=== PATIENT | male | born 1960 | race African-American/Black ===

== ENCOUNTER 2019-07-02 10:17 | Inpatient (IN) | payer OTHER ==
[2019-07-02 11:28] LABS: ALT (SGPT) 34 U/L (8-55); AST (SGOT) 109 U/L (5-34); Albumin 2.5 g/dL (3.5-5.0); Alkaline Phosphatase 224 U/L (40-110); Anion Gap 12 mmol/L (10-20); BUN (Urea Nitrogen) 17 mg/dL (8.4-25.7); Bilirubin, Total 13.6 mg/dL (0.2-1.2); Calc. Creatinine Clearance 0 mL/min (70-130); Calcium 7.5 mg/dL (7.8-10.44); Carbon Dioxide 18 mmol/L (22-29); Chloride 108 mmol/L (98-107); Estimated GFR-MDRD Greater than 90; Globulin 3.6 g/dL (2.4-3.5); Glucose 128 mg/dL (70-105); Lipase 371 U/L (8-78); Potassium 4.6 mmol/L (3.5-5.1); Protein, Total 6.1 g/dL (6.0-8.3); Sodium 133 mmol/L (136-145)
[2019-07-02 11:53] LABS: #Eosinphils 0.2 thou/uL (0.0-0.7); #Lymphocytes 2.9 thou/uL (1.20-3.40); #Monocytes 1.5 thou/uL (0.11-0.59); #Neutrophils 5.8 thou/uL (1.40-6.50); %Basophils 0.3 % (0.0-1.0); %Eosinophils 1.6 % (0.0-10.0); %Lymphocytes 27.9 % (21.0-51.0); %Monocytes 14.2 % (0.0-10.0); Hemoglobin 9.8 g/dL (14.0-18.0); MDiff Complete? YES; Macrocytosis SLIGHT = 6-15 cells (100X) (0-5/hpf); Mean Corpuscular HGB CONC 31.8 g/dL (32.0-36.0); Mean Corpuscular Hemoglobin 35.2 pg (27.0-31.0); Mean Platelet Volume 9.5 fL (7.4-10.4); Platelet Count 75 thou/uL (130-400); Platelet Morphology Comment Appears Decreased; RBC Distribution Width 19.4 % (11.5-14.5); Red Blood Cell (RBC) Count 2.77 mill/uL (4.70-6.10); White Blood Cell (WBC) Count 10.3 thou/uL (4.8-10.8)
[2019-07-02 12:22] LABS: INR-International Normal Ratio 3.2; PTT 50.8 SEC (22.9-36.1); Prothrombin Time 32.8 sec (12.0-14.7)
[2019-07-02 12:57] LABS: Bacteria/HPF None Seen HPF (None Seen); Bilirubin 2+ (Negative); Blood, Urine Negative (Negative); Clarity Clear (Clear); Glucose, Urine (Dipstick) Normal (Negative); Leukocyte 25 Leu/uL (Negative); Nitrite Negative (Negative); Protein, Urine (Dipstick) 20 mg/dL (Neg-Trace); RBC/HPF 0-3 HPF (0-3); Squamous Epithelial 0-3 HPF (0-3); Urobilinogen Normal mg/dL (Less than 2)
[2019-07-02] MEDS ORDERED: Vancomycin HCl 25 MG/ML Oral PO SCH (15:00)
--- NOTE | 2019-07-02 18:12 | PDOC.FPRHP ---
- History of Present Illness Chief Complaint: bilateral flank pain History of Present Illness: Patient is a 59M with PMHx of cirrhosis with portal HTN, treated Hep C, GERD, HLD, hemorrhoids, esophageal varices, depression, and recent hospitalization for sepsis 2/2 strep bacteremia and C diff presents with bilateral flank pain. Patient reports he woke up with bilateral flank pain that has since improved. He denies dysuria, increased urinary frequency. He endorses urinary hesitancy and some dark-colored urine. He denies diarrhea, denies bloody stools, denies n/ v or abdominal pain. He states that this morning he woke up and felt that his arms, legs, and foreskin are swollen. He reports that he had Hep C, but it had been treated. He denies hx of IV drug use, denies alcohol use. He had a recent admission at [facility] where he was treated for strep bacteremia and c diff. He was sent home with po vanc to continue his tx of c diff. The ED called the GI at [facility], Dr. Liang, and he recommended the patient be admitted for workup for his increased hyperbilirubinemia. PCP-CC; jaziel ED Course: 125mg firvanq po - Allergies/Adverse Reactions Allergies Allergy/AdvReac Type Severity Reaction Status Date / Time No Known Allergies Allergy Unverified 07/02/19 20:43 - Home Medications Medication Instructions Recorded Confirmed Type Calcium Carb/Vitamin D3/Vit K1 1 tablet PO DAILY 07/03/19 07/03/19 History [Calcium + D Soft Chewable Tablet] Citalopram [CeleXA] 20 mg PO DAILY 07/03/19 07/03/19 History Furosemide 20 mg PO BID 07/03/19 07/03/19 History Hydrocortisone Acetate [Anusol-HC] 25 mg GA BID 07/03/19 07/03/19 History Omeprazole 20 mg PO DAILY 07/03/19 07/03/19 History Propranolol [Inderal] 20 mg PO BID 07/03/19 07/03/19 History Spironolactone [Aldactone] 25 mg PO BID 07/03/19 07/03/19 History Vancomycin HCl [Firvanq] 125 mg PO Q6H 07/03/19 07/03/19 History diphenhydrAMINE HCl [Allergy 25 mg PO BID 07/03/19 07/03/19 History Relief] traZODone HCl [Trazodone HCl] 100 mg PO HS 07/03/19 07/03/19 History - History PMHx: cirrhosis with portal HTN, treated Hep C, GERD, HLD, hemorrhoids, esophageal varices, depression, and recent hospitalization for sepsis 2/2 strep bacteremia and C diff PSHx: cholecystectomy FHx: sister and mother had DM and were on HD Social: denies smoking, alcohol, drug use; prior marijuana use when he was younger, no IV drug use - Review of Systems General: denies: fever/chills, weight/appetite/sleep changes Eyes: denies: eye pain, vision changes ENT: denies: nasal congestion, rhinorrhea Respiratory: denies: cough, shortness of breath Cardiovascular: reports: edema (edema of legs, arms, foreskin). denies: chest pain Gastrointestinal: denies: nausea, vomiting, diarrhea, abdominal pain, GI bleeding Genitourinary: denies: incontinence, dysuria Skin: denies: rashes, lesions Musculoskeletal: reports: swelling. denies: pain, tenderness, stiffness Neurological: denies: syncope, seizure Psychological: reports: depression. denies: anxiety - Vital signs BP: [123/82] HR: [82] RR: [19] Tmax: [98.6F] Pox: [93]% on [RA] Wt: [120.7kg] - Physical Exam Constitutional: NAD, awake, alert and oriented HEENT: PERRLA, EOMI, other (bilateral scleral icterus, poor dentition) Neck: supple, FROM Chest: no-tender to palpation, no lesions Heart: RRR, normal S1/S2 Lungs: CTAB, no respiratory distress Abdomen: non-tender, bowel sounds present, other (abdomen distended) Musculoskeletal: normal tone, ROM grossly normal Neurological: no focal deficit, normal sensation Skin: no rash/lesions, good turgor Heme/Lymphatic: no purpura, no petechia Psychiatric: normal mood and affect, intact recent and remote memory FMR H&P: Results - Labs Result Diagrams: 07/02/19 10:53 07/02/19 10:53 Lab results: WBC 10.3 thou/uL (4.8-10.8) 07/02/19 10:53 Hgb 9.8 g/dL (14.0-18.0) L 07/02/19 10:53 Hct 30.7 % (42.0-52.0) L 07/02/19 10:53 MCV 111.0 fL (78.0-98.0) H 07/02/19 10:53 Plt Count 75 thou/uL (130-400) L 07/02/19 10:53 Neutrophils % 56.0 % (42.0-75.0) 07/02/19 10:53 Sodium 133 mmol/L (136-145) L 07/02/19 10:53 Potassium 4.6 mmol/L (3.5-5.1) 07/02/19 10:53 Chloride 108 mmol/L (98-107) H 07/02/19 10:53 Carbon Dioxide 18 mmol/L (22-29) L 07/02/19 10:53 BUN 17 mg/dL (8.4-25.7) 07/02/19 10:53 Creatinine 0.73 mg/dL (0.7-1.3) 07/02/19 10:53 Glucose 128 mg/dL (70-105) H 07/02/19 10:53 Lactic Acid 1.4 mmol/L (0.5-2.2) 07/02/19 10:53 Calcium 7.5 mg/dL (7.8-10.44) L 07/02/19 10:53 Total Bilirubin 13.6 mg/dL (0.2-1.2) H 07/02/19 10:53 AST 109 U/L (5-34) H 07/02/19 10:53 ALT 34 U/L (8-55) 07/02/19 10:53 Alkaline Phosphatase 224 U/L (40-110) H 07/02/19 10:53 Ammonia 41 umol/L (18-72) 07/02/19 13:17 Serum Total Protein 6.1 g/dL (6.0-8.3) 07/02/19 10:53 Albumin 2.5 g/dL (3.5-5.0) L 07/02/19 10:53 Lipase 371 U/L (8-78) H 07/02/19 10:53 Urine Ketones Trace mg/dL (Negative) A 07/02/19 12:38 Urine Blood Negative (Negative) 07/02/19 12:38 Urine Nitrite Negative (Negative) 07/02/19 12:38 Ur Leukocyte Esterase 25 Astrid/uL (Negative) 07/02/19 12:38 Urine RBC 0-3 HPF (0-3) 07/02/19 12:38 Urine WBC 4-6 HPF (0-3) A 07/02/19 12:38 Ur Squamous Epith Cells 0-3 HPF (0-3) 07/02/19 12:38 Urine Bacteria None Seen HPF (None Seen) 07/02/19 12:38 - Radiology Interpretation CT scan - abdomen Status: report reviewed by me (Hepatic cirrhosis with abnormal attenuation within hepatic segment eight which is a linear. Non-emergent follow-up dedicated liver protocol MRI recommended. Differential includes malignant process versus high-grade hypoenhancing fibrosis. Spleen is not significantly enlarged. No hydronephrosis. Moderate third spacing of fluid. Small hepatic and esophageal varices. The portal vein is patent. Mild congestive changes of the ascending colon, trace free fulid in the pelvis. No dilated loops of large or small bowel. The aortic contour is non-aneurysmal. No acute osseous abnormality. Advanced degenerative space disease L3/L4 of large superior endplate Schmorl's node of L4. Disc osteophyte copmlex at L4/L5) FMR H&P: A/P - Problem List (1) Hyperbilirubinemia Current Visit: Yes Status: Acute Code(s): E80.6 - OTHER DISORDERS OF BILIRUBIN METABOLISM (2) Cirrhosis Current Visit: Yes Status: Acute Code(s): K74.60 - UNSPECIFIED CIRRHOSIS OF LIVER (3) Portal hypertension Current Visit: Yes Status: Acute Code(s): K76.6 - PORTAL HYPERTENSION (4) Hepatitis C Current Visit: Yes Status: Acute Code(s): B19.20 - UNSPECIFIED VIRAL HEPATITIS C WITHOUT HEPATIC COMA (5) GERD (gastroesophageal reflux disease) Current Visit: Yes Status: Acute Code(s): K21.9 - GASTRO-ESOPHAGEAL REFLUX DISEASE WITHOUT ESOPHAGITIS (6) HLD (hyperlipidemia) Current Visit: Yes Status: Acute Code(s): E78.5 - HYPERLIPIDEMIA, UNSPECIFIED (7) Hemorrhoid Current Visit: Yes Status: Acute Code(s): K64.9 - UNSPECIFIED HEMORRHOIDS (8) Esophageal varices Current Visit: Yes Status: Acute Code(s): I85.00 - ESOPHAGEAL VARICES WITHOUT BLEEDING (9) Depressed Current Visit: Yes Status: Acute Code(s): F32.9 - MAJOR DEPRESSIVE DISORDER , SINGLE EPISODE, UNSPECIFIED (10) Macrocytic anemia Current Visit: Yes Status: Acute Code(s): D53.9 - NUTRITIONAL ANEMIA, UNSPECIFIED - Plan Patient is a 59M with PMHx of cirrhosis with portal HTN, treated Hep C, GERD, HLD, hemorrhoids, esophageal varices, depression, and recent hospitalization for sepsis 2/2 strep bacteremia and C diff presents with bilateral flank pain. #Hyperbilirubinemia in the setting of Cirrhosis from Hep C -bili 13.6, up from 7.3 during his hospitalization at [facility] -patient has known cirrhosis from Hep C, reportedly treated -abdomen CT: Hepatic cirrhosis with abnormal attenuation within hepatic segment eight which is alinear. Differential includes malignant process vs high-grade hypoenhancing fibrosis -Dr. Liang ([phone]), GI from [facility] was consulted and recommended admission to further work-up elevated liver enzymes including further imaging -liver US with doppler ordered -Hep labs ordered -AFP to assess for hepatocellular carcinoma -continue home meds for cirrhosis -MELD score 30 -consider consulting GI in the am #Hx of C Diff -will continue po vanc for full 14-day course #COVID r/o -patient will be a COVID r/o due to [facility] being hospitalized at [facility] -patient asymptomatic at this time -last COVID neg 06/19 #Macrocytic anemia -patient received blood at [facility] after presenting with grossly bloody stool -patient no longer has hematochezia/melena, no symptoms of diarrhea -Hgb stable from prior admission, will continue to monitor -B12/folate pending #GERD -continue home meds #Hemorrhoids -continue home meds #Depression -continue home meds Diet: regular, NPO at midnight DVTppx: SCDs Dispo: medical obs for hyperbilirubinemia workup Code: Full PCP: [facility]-Long-Term FMR H&P: Upper Level - Pertinent history 59 yo M presents from [facility] for sharp bilateral back pain that started this morning, "my kidneys were hurting" which resolved on its own prior to arrival to ED. He has a history of cirrhosis 2/2 hep C, with a recent discharge from [facility] for C dif colitis and lower GI bleeding , and has had about 10 days of oral vancomycin. Pt reports his diarrhea has resolved, and denies GI bleeding. In the ED, he had elevated Tbili to 13.6, which was elevated from 7 during his last hospital stay. Lipase was elevated to 371. GI from [facility] recommended that the patient be admitted for further workup of his hyperbilirubinemia. - Pertinent findings VS: BP 109/65, P 78, R 19, 98.6 T, 98% on RA PE: General: AAM in no acute distress, lying in bed Eyes: Scleral icterus bilat Lungs: BCTA, no wheezing or crackles Cardiac: RRR, no murmurs Abdomen: +fluid wave, soft, non tender Back: no CVA tenderness Extremities: 2+ pitting edema bilat upper and lower extremities, pulses 2+ BUE and BLE - Plan Date/Time: 07/02/19 1810 59 yo M with cirrhosis 2/2 Hep C presents admitted for hyperbilirubinemia Elevated bilirubin -7.3 on recent discharge, 13.7 today. Direct bili 7.6. Likely increased 2/2 to his recent GI bleed due to C dif colitis. -Liver dopplers pending to r/o hepatic thrombosis -Consult GI in AM, appreciate recommendations Cirrhosis 2/2 Hep C, s/p treatment -Hep C quant pending -MELD 30 -AFP pending -Abdomen CT from [facility]: Hepatic cirrhosis with abnormal attenuation within hepatic segment eight which is alinear. Differential includes malignant process vs high-grade hypoenhancing fibrosis. Recommend non-emergent MRI follow/ up. -Appreciate GI recs C dif colitis -Continue to treat with PO vanc for total course 14 days Macrocytic Anemia -Hgb stable, 8 on discharge, 9.8 today -MCV 111 -B12 and folate pending Covid R/O -Due [facility] from [facility], patient to be swabbed for Covid. Asymptomatic. Lower back pain -Resolved -UA neg, urine culture pending Recent Bacteremia Group G strep -s/p treatment, repeat blood cultures pending I, Meseret Plunkett MD, have evaluated this patient and agree with findings/plan as outlined by equine intern resident. Pertinent changes/additions are listed here. Addendum - Attending - Attending Attestation Date/Time: 05/23/20 2300 I personally evaluated the patient and discussed the management with Dr. Sosa/ Dimitrios. I agree with the History, Examination, Assessment and Plan documented above with any addition or exceptions noted below. patient has had a marked changed in his labs since D/C from [facility]. Concern for development of development of acute on chronic hepatic failure. Recent CT scan showed hepatic mass. Tumor markers pending as is Liver US to r/o portal venous thrombosis. Will continue to monitor labs and consult GI tomorrow. COVID r/o since currently incarcerated.
[2019-07-02] MEDS ORDERED: Calcium Carbonate 500 MG ChewTAB PO PRN (19:48)
[2019-07-02 21:36] LABS: HBCM Index 0.05 S/CO (0-0.79); Hep B Core Total Ab Non-Reactive (NonReactive); Hep B Core Total Index 0.13 S/CO (0-0.79); Hepatitis B Core IgM Abs Non-Reactive (NonReactive)
[2019-07-02 21:40] LABS: HBSAB Concentration 24.46 mIU/mL; Hep B Surf AB Reactive (NonReactive)
[2019-07-02] MEDS: Vancomycin HCl 25 MG/ML Oral PO SCH (23:40)
[2019-07-03] MEDS: Vancomycin HCl 25 MG/ML Oral PO SCH ×4 (04:13→21:21)
--- NOTE | 2019-07-03 06:54 | PDOC.FM ---
- Subjective Subjective: NAEO. Patient reports resolution of flank pain this AM. No N/V/D or blood in stool. Also reported improvement in foreskin edema. - Objective MAR Reviewed: Yes Vital Signs & Weight: Vital Signs (12 hours) Temp Pulse Resp BP Pulse Ox 07/03/19 04:18 98.8 F 84 16 130/75 97 07/02/19 23:44 76 12 126/57 L 97 07/02/19 20:31 98.8 F 70 16 122/69 97 Weight Weight 120.565 kg I&O: 07/01/19 07/02/19 07/03/19 06:59 06:59 06:59 Intake Total 110 Balance 110 Result Diagrams: 07/03/19 06:47 07/03/19 06:46 Phys Exam - Physical Examination Constitutional: NAD HEENT: moist MMs Neck: supple, full ROM Respiratory: no wheezing, no rales, no rhonchi, clear to auscultation bilateral Cardiovascular: RRR, no significant murmur Gastrointestinal: non-tender mild distention noted Musculoskeletal: edema present (2+ pitting edema on lateral aspects of both legs ) Neurological: non-focal, moves all 4 limbs Psychiatric: normal affect, A&O x 3 Skin: no rash Dx/Plan (1) Cirrhosis Code(s): K74.60 - UNSPECIFIED CIRRHOSIS OF LIVER Status: Chronic (2) Depressed Code(s): F32.9 - MAJOR DEPRESSIVE DISORDER, SINGLE EPISODE, UNSPECIFIED Status : Chronic (3) Esophageal varices Code(s): I85.00 - ESOPHAGEAL VARICES WITHOUT BLEEDING Status: Chronic (4) GERD (gastroesophageal reflux disease) Code(s): K21.9 - GASTRO-ESOPHAGEAL REFLUX DISEASE WITHOUT ESOPHAGITIS Status: Chronic (5) HLD (hyperlipidemia) Code(s): E78.5 - HYPERLIPIDEMIA, UNSPECIFIED Status: Chronic (6) Hemorrhoid Code(s): K64.9 - UNSPECIFIED HEMORRHOIDS Status: Chronic (7) Hepatitis C Code(s): B19.20 - UNSPECIFIED VIRAL HEPATITIS C WITHOUT HEPATIC COMA Status: Chronic (8) Hyperbilirubinemia Code(s): E80.6 - OTHER DISORDERS OF BILIRUBIN METABOLISM Status: Acute (9) Macrocytic anemia Code(s): D53.9 - NUTRITIONAL ANEMIA, UNSPECIFIED Status: Chronic (10) Portal hypertension Code(s): K76.6 - PORTAL HYPERTENSION Status: Chronic - Plan Plan: Patient is a 59M with PMHx of cirrhosis with portal HTN, treated Hep C, GERD, HLD, hemorrhoids, esophageal varices, depression, and recent hospitalization for sepsis 2/2 strep bacteremia and C diff presents with bilateral flank pain. #Hyperbilirubinemia in the setting of Cirrhosis 2/2 Hep C -bili 13.6, up from 7.3 during his hospitalization at [facility] -patient has known cirrhosis from Hep C (MELD score 30), reportedly treated. Hep C viral load pending. Hep B serologies indication of immunization. -abdomen CT from [facility] notable for Hepatic cirrhosis with abnormal attenuation within hepatic segment eight which is linear. Follow-up liver MRI imaging recommended by radiologist who read scan. Dr. Liang ([phone]), GI from [facility] was consulted and recommended admission to further work-up elevated liver enzymes including further imaging. - DDX includes malignant process vs high-grade hypoenhancing fibrosis. AFP WNLs & CEA pending. -liver US with doppler ordered but patient COVID-PUI so will likely not get until this has resulted. Will touch base with GI today for further recs in the meantime. -continue home meds for cirrhosis #Hx of C Diff -will continue po vanc for full 14-day course #COVID r/o -patient is a COVID r/o due to returning to senior care after being hospitalized at [facility] -patient asymptomatic at this time -last COVID neg 06/19 #Macrocytic anemia -patient received blood at [facility] after presenting with grossly bloody stool -patient no longer has hematochezia/melena, no symptoms of diarrhea -Hgb stable overnight -B12/folate WNLs #GERD -continue home meds #Hemorrhoids -continue home meds #Depression -continue home meds Diet: NPO pending GI recs. DVT ppx: SCDs GI PPX: protonix Dispo: Continue monitoring on medical obs for hyperbilirubinemia workup. Code: Full PCP: MEHNAZ-Hakeem Addendum - Attending - Attending Attestation Date/Time: 07/03/19 1049 Patient is a 59M with PMHx from senior care with history cirrhosis with portal HTN, treated Hep C, GERD, HLD, hemorrhoids, esophageal varices, depression, and recent hospitalization for sepsis 2/2 strep bacteremia and C diff admitted for evaluation of increased bilirubin. His GI doctor at [facility] wanted him admitted for evalution of hyperbilirubin and said [facility] was full. Patient had COVID swab because he is from senior care, asymptomatic. Outpatient MRI was rec'd from his CT report at the [facility]. Dr. Kerr will see patient, appreciate recs.
[2019-07-03 07:15] LABS: ALT (SGPT) 35 U/L (8-55); AST (SGOT) 109 U/L (5-34); Albumin 2.2 g/dL (3.5-5.0); Alkaline Phosphatase 202 U/L (40-110); Anion Gap 9 mmol/L (10-20); BUN (Urea Nitrogen) 17 mg/dL (8.4-25.7); Bilirubin, Total 14.5 mg/dL (0.2-1.2); Calc. Creatinine Clearance 189 mL/min (70-130); Calcium 7.4 mg/dL (7.8-10.44); Carbon Dioxide 21 mmol/L (22-29); Chloride 110 mmol/L (98-107); Estimated GFR-MDRD Greater than 90; Globulin 3.5 g/dL (2.4-3.5); Glucose 71 mg/dL (70-105); Potassium 4.9 mmol/L (3.5-5.1); Protein, Total 5.7 g/dL (6.0-8.3); Sodium 135 mmol/L (136-145)
[2019-07-03 07:20] LABS: INR-International Normal Ratio 3.5; Prothrombin Time 34.6 sec (12.0-14.7)
[2019-07-03 08:13] LABS: Band 1 % (5-11); Hemoglobin 9.3 g/dL (14.0-18.0); Lymphocytes 27 % (21-51); MDiff Complete? YES; Mean Corpuscular HGB CONC 30.5 g/dL (32.0-36.0); Mean Corpuscular Hemoglobin 34.5 pg (27.0-31.0); Mean Platelet Volume 9.3 fL (7.4-10.4); Metamyelocyte 1 % (0-0); Monocytes 7 % (0-10); Neutrophil 64 % (42-75); Platelet Count 73 thou/uL (130-400); Platelet Morphology Comment Appears Decreased; RBC Distribution Width 19.8 % (11.5-14.5); Red Blood Cell (RBC) Count 2.69 mill/uL (4.70-6.10); White Blood Cell (WBC) Count 10.5 thou/uL (4.8-10.8)
[2019-07-03] MEDS: Calcium Carbonate 600 MG + Vit D TAB PO SCH (08:52)
[2019-07-03] MEDS: Spironolactone 25 MG TAB PO SCH ×2 (08:52→20:01)
[2019-07-03] MEDS: Furosemide 20 MG TAB PO SCH ×2 (08:52→20:01)
[2019-07-03] MEDS: Hydrocortisone Acetate 25 MG Suppository PR SCH ×2 (08:54→21:22)
[2019-07-03] MEDS: Citalopram 20 MG TAB PO SCH (08:54)
[2019-07-03] MEDS: Propranolol 10 MG TAB PO SCH ×2 (09:50→20:00)
[2019-07-03 17:09] LABS: SARS-CoV-2 MS2 Positive; SARS-CoV-2 N Gene Negative; SARS-CoV-2 S Gene Negative; SARS-CoV-2 orf1ab Negative
[2019-07-03] MEDS: traZODone HCl 50 MG TAB PO SCH (20:01)
--- NOTE | 2019-07-04 00:58 | CON ---
DATE OF CONSULTATION: 07/03/2019 REQUESTING PHYSICIAN: Dr. Hutchinson. REASON FOR CONSULTATION: Cirrhosis and jaundice. HISTORY OF PRESENT ILLNESS: Mr. Jonel Recio is a 59-year-old gentleman, [facility], admitted to the hospital yesterday for transient flank pain and hyperbilirubinemia. Notably, he has a history of cirrhosis, which is thought to be secondary to hepatitis C. Evidently, this has been successfully treated in the past with sustained virologic response. The patient also has a history of depression and cholecystectomy. He was recently hospitalized from 06/19 to 06/29, earlier this month at the [facility]. He had presented there with fevers and bloody stool. He was found to have streptococcal bacteremia as well as C difficile colitis. COVID testing was negative. The patient was treated with antibiotics by IV as well as oral vancomycin. He is finishing up the oral vancomycin, and his hematochezia and diarrhea have all completely resolved. Notably, labs while he was there included hemoglobin of 8.0, platelets of 67,000. Total bilirubin of 7.6, AST 102, ALT 43. INR of 2.5. The patient had a CT scan there, which demonstrated cirrhotic liver with an abnormal linear attenuation in segment 8, felt to represent either malignant process or high-grade fibrosis, and it was recommended that nonemergent MRI followup be obtained. This was deferred, as was any endoscopy, to the present health system following discharge. The patient states he did well for a couple of days after discharge, but yesterday he had several hours of bilateral flank pain, which was intermittently quite severe. This had essentially resolved by the time of his admission here last night, but labs had demonstrated some worsening in bilirubin up to 14.5 and worsening of INR up to 3.5. [facility] was full, but their physicians recommended he be admitted for further workup of this. At this time, the patient is currently again asymptomatic. There is no blood in the stool. He thinks there was a bit of trace blood in the urine, but urinalysis does not really bear this out. He is no longer having any abdominal pain or any flank pain. There is no nausea or vomiting. He is jaundiced, but this is nothing new for him. REVIEW OF SYSTEMS: Full review of systems including constitutional, head, eyes, ears, nose, throat, GI, , cardiovascular, respiratory, musculoskeletal, neurologic systems is negative except as noted in the HPI. PAST MEDICAL HISTORY: 1. Hepatitis C, evidently successfully treated with sustained virologic response. 2. Cirrhosis, secondary to hepatitis C. 3. Hyperlipidemia. 4. Hypertension. 5. Osteoarthritis. 6. Cholecystectomy. 7. Depression. 8. C difficile, finishing up treatment for this with symptom resolution. ALLERGIES: NO KNOWN DRUG ALLERGIES. MEDICATIONS: 1. Calcium/vitamin D. 2. Celexa. 3. Furosemide 20 mg b.i.d. 4. Anusol. 5. Omeprazole 20 mg daily. 6. Propranolol 20 mg b.i.d. 7. Spironolactone 25 mg b.i.d. 8. Vancomycin 125 mg q.6 hours. 9. Diphenhydramine. 10. Trazodone. FAMILY HISTORY: His mother and sister had end-stage renal disease and diabetes. SOCIAL HISTORY: The patient is a [employer] inmate. No current tobacco, alcohol, or drug use. PHYSICAL EXAMINATION: VITAL SIGNS: Temperature 97.9, pulse 78, blood pressure 110/56, 98% oxygen saturation on room air. GENERAL: A 59-year-old man, walking about the room very comfortably, in no distress, in good spirits. SKIN: He is jaundiced. No rashes were palpable. EYES: He has scleral icterus. Extraocular movements intact. ENT: Mucous membranes moist. No oral lesions. LYMPH: No submandibular or supraclavicular lymphadenopathy. THYROID: Nontender to palpation. HEART: Regular rate and rhythm. LUNGS: Clear to auscultation bilaterally. ABDOMEN: Bowel sounds are present. Soft, nontender to palpation throughout. EXTREMITIES: No peripheral edema. VESSELS: Radial pulses, 2+ bilaterally. NEUROLOGIC: Cranial nerves 2 through 12 intact bilaterally. No focal deficits. LABORATORY STUDIES: WBC 10.5, hemoglobin 9.3, which is stable from before, platelets 73. INR 3.5, which is increased from recent hospitalization. Sodium 135, potassium 4.9, BUN 17, creatinine 0.71, total bilirubin 14.5, direct bilirubin 7.6, alkaline phosphatase 202, AST 109, ALT 35, albumin 2.2. Notably, LFTs are all stable from recent admission except for total bilirubin, lipase 371. Lactic acid only 1.4. AFP only 5.4. Ammonia only 41. Vitamin B12 greater than 2000. Folic acid 13.2. CEA pending. CA-19-9 pending. Urinalysis shows only 4 to 6 wbc's. Urine culture is negative at 24 hours. ASSESSMENT AND PLAN: 1. Cirrhosis, decompensated. 2. Hyperbilirubinemia. The patient has had interval elevation in his total bilirubin as well as his INR from his recent admission at the [facility]. Notably, direct bilirubin is only 7.6 with total bilirubin 14.5, so I wonder if he might have some component of Gilbert syndrome in addition to his decompensated liver disease. Even so, the INR is also more elevated, now to 3.5 as opposed to 2.5 in recent admission. Given his recent abdominal imaging and absence of current abdominal pain symptoms, I doubt that this represents any biliary obstructive process. It is likely that the elevated bilirubin simply will reflex his recent septicemia and Clostridium difficile infection, the total bilirubin can often elevate the situations and persist, notably the transaminases are stable. It would be worthwhile to trend the LFTs and INR daily for a day or two to assure they are not continuing to spike, but I do not think that any further laboratory investigations are necessary at this point. 3. Abnormal CT scan of the liver, suggesting abnormal attenuation in hepatic segment 8. I reviewed that CT report. Nonemergent MRI followup of this lesion was suggested. I note that AFP is normal. CA-19-9 and CEA are pending. Hopefully, this just represents linear scarring, but given the significant rise in bilirubin, it would be worthwhile to just go ahead and obtain that MRI for further characterization now. I have canceled the abdominal ultrasound with Dopplers and ordered the MRI, which should give us that information and more. 4. History of hepatitis C. This was evidently successfully treated with sustained virologic response. Hepatitis C RNA has been ordered and is pending. Anticipate if labs are stable the next day or two and the MRI does not show any new concerning findings, he will be able to be discharged back to his unit, to follow up longer-term for his cirrhosis with [facility] physicians. Job ID: [id number]
[2019-07-04] MEDS: Vancomycin HCl 25 MG/ML Oral PO SCH ×4 (04:09→22:43)
[2019-07-04 05:47] LABS: INR-International Normal Ratio 3.8
[2019-07-04 06:11] LABS: ALT (SGPT) 27 U/L (8-55); AST (SGOT) 112 U/L (5-34); Albumin 2.2 g/dL (3.5-5.0); Alkaline Phosphatase 159 U/L (40-110); BUN (Urea Nitrogen) 19 mg/dL (8.4-25.7); Bilirubin, Total 16.9 mg/dL (0.2-1.2); Calc. Creatinine Clearance 184 mL/min (70-130); Calcium 7.6 mg/dL (7.8-10.44); Carbon Dioxide 17 mmol/L (22-29); Chloride 108 mmol/L (98-107); Estimated GFR-MDRD Greater than 90; Globulin 3.4 g/dL (2.4-3.5); Glucose 102 mg/dL (70-105); Potassium 5.1 mmol/L (3.5-5.1); Protein, Total 5.6 g/dL (6.0-8.3); Sodium 132 mmol/L (136-145)
[2019-07-04 06:17] LABS: Anion Gap 12 mmol/L (10-20)
--- NOTE | 2019-07-04 06:52 | PDOC.FM ---
- Subjective Subjective: Mr. Recio has no complaints this morning. Reports foreskin edema continues to improve. Says urine is not as dark as prior. - Objective Vital Signs & Weight: Vital Signs (12 hours) Temp Pulse Resp BP BP Pulse Ox 07/04/19 04:00 97.7 F 67 18 111/72 99 07/03/19 23:57 97.8 F 68 18 108/70 98 07/03/19 22:39 97.5 F L 62 18 114/72 99 07/03/19 19:20 97.7 F 70 16 114/66 98 Weight Weight 120.882 kg I&O: 07/02/19 07/03/19 07/04/19 06:59 06:59 06:59 Intake Total 110 100 Balance 110 100 Result Diagrams: 07/03/19 06:47 07/04/19 05:21 Phys Exam - Physical Examination Constitutional: NAD Respiratory: clear to auscultation bilateral (anteriorly) Cardiovascular: RRR, no significant murmur Gastrointestinal: non-tender (slightly distended) Musculoskeletal: edema present (1+pitting edema BLE) Deviation from normal: foreskin slightly edematous, no erythema, can be retracted Dx/Plan - Plan Plan: 59M with PMHx of cirrhosis with portal HTN, treated Hep C, GERD, HLD, hemorrhoids, esophageal varices, depression, and recent hospitalization for sepsis 2/2 strep bacteremia and C diff presents with bilateral flank pain. #Hyperbilirubinemia in the setting of Cirrhosis 2/2 Hep C -bili trending up, 16.9 -patient has known cirrhosis from Hep C (MELD score 30), reportedly treated and alcohol abuse. Hep C viral load pending. Hep B serologies indicate immunization. -abdomen CT from [facility] notable for Hepatic cirrhosis with abnormal attenuation within hepatic segment eight which is linear. Follow-up liver MRI imaging recommended by radiologist who read scan. - Dr. Liang ([phone]), GI from [facility] - GI consulted, MRI and other labs pending #Hx of C Diff -will continue po vanc for full 14-day course #COVID negative #Macrocytic anemia -patient received blood at [facility] after presenting with grossly bloody stool -patient no longer has hematochezia/melena, no symptoms of diarrhea -Hgb stable, B12, folate WNL. # Blood cx +coag neg staph - likely contaminate #GERD -continue home meds #Hemorrhoids -continue home meds #Depression -continue home meds Diet: NPO pending GI recs. DVT ppx: SCDs GI PPX: protonix Dispo: Continue hyperbilirubinemia workup per GI Code: Full PCP: Jelena Addendum - Attending - Attending Attestation Date/Time: 07/04/19 8417 I personally evaluated the patient and discussed the management with Dr. Mcginnis. I agree with the History, Examination, Assessment and Plan documented above with any addition or exceptions noted below. Patient stable. MELD score continues to trend upward in his state of decompensated cirrhosis. 90 day mortality now estimated at 65% due to MELD 34. GI on board. MRI of liver pending and further mgmt pending GI recs. Labs overall stable but mild worsening of liver function.
[2019-07-04] MEDS: Propranolol 10 MG TAB PO SCH ×2 (08:43→22:21)
[2019-07-04] MEDS: Calcium Carbonate 600 MG + Vit D TAB PO SCH (08:43)
[2019-07-04] MEDS: Furosemide 20 MG TAB PO SCH ×2 (08:44→22:20)
[2019-07-04] MEDS: Hydrocortisone Acetate 25 MG Suppository PR SCH ×2 (08:44→22:21)
[2019-07-04] MEDS: Spironolactone 25 MG TAB PO SCH ×2 (08:44→22:19)
[2019-07-04] MEDS: Citalopram 20 MG TAB PO SCH (08:44)
--- NOTE | 2019-07-04 15:42 | PRG ---
DATE OF SERVICE: 07/04/2019 SUBJECTIVE: Mr. eRcio is feeling okay. No new complaints. He is tolerating his diet. Bowel movements are normal. He has not yet undergone MRI. INR and total bilirubin are slightly up to 3.8 and 16.9 respectively. OBJECTIVE: VITAL SIGNS: Temperature 98.1, pulse 72, blood pressure 103/66, and 98% oxygen saturation on room air. GENERAL: A 59-year-old man, lying in bed comfortably, in no distress. He is jaundiced. HEART: Regular rate and rhythm. LUNGS: Clear to auscultation bilaterally. ABDOMEN: Bowel sounds present. Soft and nontender to palpation throughout. EXTREMITIES: No peripheral edema. LABORATORY STUDIES: WBC is 10.5, hemoglobin 9.3, and platelets 73. INR up to 3.8. Sodium 132, potassium 5.1, BUN 19, and creatinine 0.73. Total bilirubin up to 16.9, but otherwise stable. Alkaline phosphatase 159, AST 112, and ALT 27. COVID PCR is negative. Hepatitis B surface antibody is reactive, signifying immunity. Hepatitis C RNA is pending. CA-19-9 level is pending. MRI of the abdomen with contrast is also pending. ASSESSMENT AND PLAN: 1. Cirrhosis, decompensated in the context of recent Strep bacteremia and Clostridium difficile colitis. 2. Hyperbilirubinemia. The patient has had interval elevation in his total bilirubin as well as his INR since recent admission at the [facility]. Even so, he remains clinically stable. We are awaiting abdominal MRI to better rule out any biliary obstructive process and also further characterize this area of abnormal attenuation in hepatic segment 8. CA-19-9 level is still pending. Note that AFP is normal. 3. History of hepatitis C. This was evidently successfully treated with sustained virologic response. Hepatitis C RNA has been ordered and is pending. 4. Continue to trend INR and CMP daily. If the patient was to develop any signs of encephalopathy, recheck ammonia and start lactulose. Job ID: [id number]
[2019-07-04] MEDS: traZODone HCl 50 MG TAB PO SCH (22:19)
[2019-07-05] MEDS: Vancomycin HCl 25 MG/ML Oral PO SCH ×2 (03:45→11:13)
[2019-07-05 05:58] LABS: INR-International Normal Ratio 3.8
--- NOTE | 2019-07-05 07:08 | PDOC.FM ---
- Subjective Subjective: Mr. Recio is feeling well this morning and has no complaints. Awaiting MRI. - Objective Vital Signs & Weight: Vital Signs (12 hours) Temp Pulse Resp BP BP Pulse Ox 07/05/19 04:38 97.7 F 66 20 105/67 97 07/05/19 00:00 98.4 F 71 20 116/77 96 07/04/19 20:00 98.1 F 73 20 99/66 99 07/04/19 19:59 98.1 F 73 20 99/66 99 Weight Weight 120.882 kg I&O: 07/04/19 07/05/19 07/06/19 06:59 06:59 06:59 Intake Total 100 700 Output Total 600 Balance 100 100 Result Diagrams: 07/03/19 06:47 07/05/19 07:50 Phys Exam - Physical Examination Constitutional: NAD jaundiced sclera Respiratory: clear to auscultation bilateral Cardiovascular: RRR, no significant murmur Gastrointestinal: soft (slightly distended), non-tender anasarca Neurological: non-focal Psychiatric: normal affect Skin: normal turgor Dx/Plan - Plan Plan: 59M with PMHx of cirrhosis with portal HTN, treated Hep C, GERD, HLD, hemorrhoids, esophageal varices, depression, and recent hospitalization for sepsis 2/2 strep bacteremia and C diff presents with bilateral flank pain. #Hyperbilirubinemia in the setting of decompensated cirrhosis -bili trending up -patient has known cirrhosis from Hep C (MELD score 30s), reportedly treated and alcohol abuse. Hep C viral load pending. Hep B serologies indicate immunization. AFP negative. -abdomen CT from [facility] notable for Hepatic cirrhosis with abnormal attenuation within hepatic segment eight which is linear. Follow-up liver MRI imaging recommended by radiologist who read scan. - Dr. Liang ([phone]), GI from [facility] - GI consulted, MRI and other labs pending #Hx of C Diff -will continue po vanc for full 14-day course, today likely last day of therapy but will verify before discontinuing. #COVID negative #Macrocytic anemia -patient received blood at [facility] after presenting with grossly bloody stool -Hgb stable, B12, folate WNL. # Blood cx +coag neg staph - likely contaminate #GERD -continue home meds #Hemorrhoids -continue home meds #Depression -continue home meds DVT ppx: SCDs GI PPX: protonix Dispo: Continue hyperbilirubinemia workup per GI, pending MRI to be done today, otherwise is medically stable Code: Full PCP: Jelena Addendum - Attending - Attending Attestation Date/Time: 07/05/19 1221 I personally evaluated the patient and discussed the management with Dr. Mcginnis. I agree with the History, Examination, Assessment and Plan documented above with any addition or exceptions noted below. Liver function stable. Awaiting MRI and further GI recs but hopefully nearing stable for discharge back to facility.
[2019-07-05 07:31] VITALS: BMI 38.9
[2019-07-05 08:18] LABS: ALT (SGPT) 47 U/L (8-55); AST (SGOT) 138 U/L (5-34); Albumin 2.3 g/dL (3.5-5.0); Alkaline Phosphatase 218 U/L (40-110); Anion Gap 7 mmol/L (10-20); BUN (Urea Nitrogen) 18 mg/dL (8.4-25.7); Bilirubin, Total 17.6 mg/dL (0.2-1.2); Calc. Creatinine Clearance 151 mL/min (70-130); Calcium 7.5 mg/dL (7.8-10.44); Carbon Dioxide 25 mmol/L (22-29); Chloride 105 mmol/L (98-107); Estimated GFR-MDRD Greater than 90; Globulin 3.6 g/dL (2.4-3.5); Glucose 104 mg/dL (70-105); Potassium 4.1 mmol/L (3.5-5.1); Protein, Total 5.9 g/dL (6.0-8.3); Sodium 133 mmol/L (136-145)
[2019-07-05] MEDS: Propranolol 10 MG TAB PO SCH ×2 (08:36→21:59)
[2019-07-05] MEDS: Furosemide 20 MG TAB PO SCH (08:36)
[2019-07-05] MEDS: Citalopram 20 MG TAB PO SCH (08:36)
[2019-07-05] MEDS: Calcium Carbonate 600 MG + Vit D TAB PO SCH (08:36)
[2019-07-05] MEDS: Spironolactone 25 MG TAB PO SCH (08:36)
[2019-07-05] MEDS: Hydrocortisone Acetate 25 MG Suppository PR SCH ×2 (08:37→21:59)
--- NOTE | 2019-07-05 13:49 | MRI ---
MRI OF THE ABDOMEN WITHOUT AND WITH CONTRAST: COMPARISON: CT abdomen/pelvis 06/20/2019. HISTORY: Cirrhosis with abnormality seen in segment 8 of the liver on recent CT. TECHNIQUE: Multiplanar, multisequence MR images were obtained of the abdomen without and with IV contrast. FINDINGS: The liver is nodular in appearance consistent with cirrhosis. The abnormal region seen in segment 8 of the liver on prior CT shows no focal liver mass or significantly abnormal enhancement compared to the rest of the liver and likely represented normal fibrous septations in an area of cirrhosis. No b iliary dilatation is seen. The gallbladder has been removed. There is a small amount of ascites. Diffuse soft tissue anasarca is present. There is a 9 mm cyst i n the right kidney. The adrenal glands, left kidney, spleen, and pancreas are unremarkable. No abdominal adenopathy is seen. No marrow signal abnormality is present. IMPRESSION: 1. Cirrhosis without suspicious liver lesion identified. 2. Ascites. 3. Small right renal cyst. POS: [facility]
--- NOTE | 2019-07-05 15:37 | PRG ---
DATE OF SERVICE: SUBJECTIVE: The patient had his MRI earlier this morning. He feels fine without any localizing pain. He denies any nausea or vomiting. Able to tolerate his diet well. His only complaint is swelling in his legs. PHYSICAL EXAMINATION: VITAL SIGNS: Temperature 97.8, blood pressure 104/68, pulse of 70. GENERAL: He is alert, sitting up in big chair without any distress. HEENT: Shows icteric sclerae. Oropharynx is clear. NECK: Supple. CV: Shows normal S1 and S2. Regular rate and rhythm. CHEST: Shows breath sounds. ABDOMEN: Protuberant but nontender. He has active bowel sounds. There is no tenderness. EXTREMITIES: Shows 3+ pretibial and pedal edema. LABORATORY DATA: WBC is 10.5, hemoglobin 9.3, and platelet count is 73 on . His electrolytes within normal range. Creatinine 0.88, BUN of 18, bilirubin of 7.5, AST of 138, ALT of 47, alkaline phosphatase 218. Abdominal MRI performed showed cirrhotic liver without any focal mass or lesion. There is no biliary dilation. He does have diffuse ascites. ASSESSMENT: 1. Evidence of decompensation cirrhosis from recent C diff and streptococcal infection, hospitalized at [facility]. He has ascites and peripheral edema at this point, but no evidence of hepatic encephalopathy. 2. Elevation of liver profile with hyperbilirubinemia. Bilirubin appears to be stabilized at the present time. He does have clinically significant hepatic dysfunction as evidenced by INR of over 3. 3. Abnormality seen on liver by CT, MRI does not show any focal hepatic lesion. 4. History of recently treated hepatitis C, HCV RNA is still pending. PLAN: 1. We will increase his diuretics to furosemide 40 mg b.i.d. and spironolactone 100 mg b.i.d. as his renal function remained stable and without any significant electrolyte derangements. 2. Continue salt restriction. 3. We will start on vitamin K 5 mg daily. 4. Continue to trend his bilirubin and transaminases. If stable, can be discharged from hospital. Job ID: [id number] [facility]ITAL[facility]
[2019-07-05] MEDS: traZODone HCl 50 MG TAB PO SCH (21:59)
[2019-07-05] MEDS: Spironolactone 100 MG TAB PO SCH (21:59)
--- NOTE | 2019-07-06 06:48 | PDOC.FM ---
- Subjective Subjective: Mr. Recio was pleasant, sitting up eating breakfast this morning. He has no concerns. - Objective Vital Signs & Weight: Vital Signs (12 hours) Temp Pulse Resp BP Pulse Ox 07/06/19 00:16 98 F 71 17 109/69 96 07/05/19 20:00 99 07/05/19 19:30 98.3 F 72 18 114/70 99 Weight Weight 120.202 kg I&O: 07/04/19 07/05/19 07/06/19 06:59 06:59 06:59 Intake Total 100 940 Output Total 600 350 Balance 100 340 -350 Result Diagrams: 07/03/19 06:47 07/06/19 06:43 Phys Exam - Physical Examination Constitutional: NAD Respiratory: no wheezing, clear to auscultation bilateral Cardiovascular: RRR, no significant murmur Gastrointestinal: soft, non-tender (slightly distended) Musculoskeletal: edema present (2+ pitting edema BLE) Neurological: non-focal Psychiatric: normal affect Skin: normal turgor Dx/Plan - Plan Plan: 59M with PMHx of cirrhosis with portal HTN, treated Hep C, GERD, HLD, hemorrhoids, esophageal varices, depression, and recent hospitalization for sepsis 2/2 strep bacteremia and C diff presents with bilateral flank pain. #Hyperbilirubinemia in the setting of decompensated cirrhosis -bili continues to trend up -patient has known cirrhosis from Hep C (MELD score 30s), reportedly treated and alcohol abuse. Hep C viral load pending. Hep B serologies indicate immunization. AFP negative. -abdomen CT from [facility] notable for Hepatic cirrhosis with abnormal attenuation within hepatic segment eight which is linear. Follow-up MRI showed no new concerning finding. - Dr. Liang ([phone]), GI from [facility] - GI consulted, titrating medications #Hyperkalemia, mild - changes being made to diuretic ratio, lasix and spironolactone both increased - continue to monitor #Hx of C Diff -treated, PO vanc discontinued #COVID negative #Macrocytic anemia -patient received blood at [facility] after presenting with grossly bloody stool -Hgb stable, B12, folate WNL. # Blood cx +coag neg staph - likely contaminate #GERD -continue home meds #Hemorrhoids -continue home meds #Depression -continue home meds DVT ppx: SCDs GI PPX: protonix Code: Full PCP: Jelena Dispo: labs continuing to uptrend, meds titrated up, await GI recommendations Addendum - Attending - Attending Attestation Date/Time: 07/06/19 0803 I personally evaluated the patient and discussed the management with Dr. Mcginnis. I agree with the History, Examination, Assessment and Plan documented above with any addition or exceptions noted below. Patient labs overall stable. Hep panel still pending. GI on board, likely stable for discharge and outpatient follow up of his worsening cirrhosis.
[2019-07-06 07:03] LABS: INR-International Normal Ratio 3.5; Prothrombin Time 35.1 sec (12.0-14.7)
[2019-07-06 07:20] LABS: ALT (SGPT) 54 U/L (8-55); AST (SGOT) 149 U/L (5-34); Albumin 2.3 g/dL (3.5-5.0); Alkaline Phosphatase 227 U/L (40-110); Anion Gap 9 mmol/L (10-20); BUN (Urea Nitrogen) 20 mg/dL (8.4-25.7); Bilirubin, Total 19.1 mg/dL (0.2-1.2); Calc. Creatinine Clearance 150 mL/min (70-130); Calcium 7.7 mg/dL (7.8-10.44); Carbon Dioxide 23 mmol/L (22-29); Chloride 104 mmol/L (98-107); Estimated GFR-MDRD Greater than 90; Glucose 113 mg/dL (70-105); Potassium 5.3 mmol/L (3.5-5.1); Protein, Total 6.3 g/dL (6.0-8.3); Sodium 131 mmol/L (136-145)
[2019-07-06] MEDS: Calcium Carbonate 600 MG + Vit D TAB PO SCH (08:14)
[2019-07-06] MEDS: Hydrocortisone Acetate 25 MG Suppository PR SCH ×2 (08:14→20:31)
[2019-07-06] MEDS: Citalopram 20 MG TAB PO SCH (08:14)
[2019-07-06] MEDS: Furosemide 20 MG TAB PO SCH ×2 (08:14→14:50)
[2019-07-06] MEDS: Propranolol 10 MG TAB PO SCH ×2 (08:15→20:30)
[2019-07-06] MEDS: Spironolactone 100 MG TAB PO SCH ×2 (08:15→20:30)
[2019-07-06] MEDS: Phytonadione 10 MG/ML AMP PO SCH (11:17)
[2019-07-06 13:58] LABS: Anion Gap 11 mmol/L (10-20); BUN (Urea Nitrogen) 19 mg/dL (8.4-25.7); Calc. Creatinine Clearance 167 mL/min (70-130); Calcium 7.9 mg/dL (7.8-10.44); Carbon Dioxide 19 mmol/L (22-29); Chloride 104 mmol/L (98-107); Estimated GFR-MDRD Greater than 90; Glucose 136 mg/dL (70-105); Potassium 5.4 mmol/L (3.5-5.1); Sodium 129 mmol/L (136-145)
[2019-07-06] MEDS: traZODone HCl 50 MG TAB PO SCH (20:31)
--- NOTE | 2019-07-06 20:59 | PRG ---
DATE OF SERVICE: 07/06/2019 SUBJECTIVE: Mr. Recio has no acute complaints. He has lower extremity edema. He had a soft bowel movement today. OBJECTIVE: VITAL SIGNS: Temperature is 97.8, pulse 70, and blood pressure 99/ 64. GENERAL: He is in no acute distress. Alert and oriented x3. He has fetor hepaticus. LUNGS: Clear to auscultation bilaterally. HEART: Regular rate and rhythm without murmur. ABDOMEN: Soft, mildly distended, but nontender. Bowel sounds are present. EXTREMITIES: 2+ pitting lower extremity edema. LABORATORY DATA: INR 3.5. Sodium 129, potassium 5.4, chloride 104, CO2 of 19, BUN 19, creatinine 0.8. Bilirubin 19.1, AST 149, ALT 54, alkaline phosphatase 227, albumin 2.3. White blood cell count 10.5, hemoglobin 9.3, and platelets 73. IMPRESSION: 1. Decompensated cirrhosis. He has a history of hepatitis C, which was treated. He was recently admitted with streptococcal infection and Clostridium difficile colitis and he had worsening decompensation of cirrhosis after that. 2. Ascites and peripheral edema. He is on a low-salt diet. His creatinine is okay. However, he has hyponatremia and hyperkalemia. We will continue to adjust the furosemide and spironolactone as he tolerates. Currently, he is only on 25 mg twice daily of spironolactone and furosemide 20 mg twice daily. 3. Abnormal CT scan. Followup MRI shows no worrisome lesion suggestive of hepatoma. His alpha-fetoprotein is normal. 4. Fetor hepaticus. He does not have overt encephalopathy at this point. He has no asterixis. We will add a low dose of lactulose. RECOMMENDATIONS: 1. Continue the current diuretics. Continue propranolol. Add a low-dose of lactulose. 2. He will need to follow up with Hepatology in [place] to determine if he is a transplant candidate as he has significantly decompensated cirrhosis with an INR of 3.5 and a bilirubin of 19. Luckily, his creatinine is hanging on for now. 3. He can discharge from acute care at [place] and followup in [place]. He can discharge back to intermediate in the meantime. Job ID: [id number] [facility]
[2019-07-07 06:18] LABS: Prothrombin Time 38.7 sec (12.0-14.7)
[2019-07-07 06:25] LABS: ALT (SGPT) 51 U/L (8-55); AST (SGOT) 138 U/L (5-34); Albumin 2.2 g/dL (3.5-5.0); Alkaline Phosphatase 195 U/L (40-110); Anion Gap 9 mmol/L (10-20); BUN (Urea Nitrogen) 19 mg/dL (8.4-25.7); Bilirubin, Total 20.4 mg/dL (0.2-1.2); Calc. Creatinine Clearance 131 mL/min (70-130); Calcium 7.8 mg/dL (7.8-10.44); Carbon Dioxide 24 mmol/L (22-29); Chloride 103 mmol/L (98-107); Estimated GFR-MDRD 90; Globulin 3.7 g/dL (2.4-3.5); Glucose 109 mg/dL (70-105); Potassium 4.8 mmol/L (3.5-5.1); Protein, Total 5.9 g/dL (6.0-8.3); Sodium 131 mmol/L (136-145)
--- NOTE | 2019-07-07 07:06 | PDOC.FM ---
- Subjective Subjective: Mr. Recio is feeling well this am. Has no complaints. Notes he had a little blood on the TP, likely from hemorrhoids. - Objective Vital Signs & Weight: Vital Signs (12 hours) Temp Pulse Resp BP BP Pulse Ox 07/07/19 04:14 97.9 F 71 17 101/63 99 07/06/19 20:35 109/69 07/06/19 20:30 97 07/06/19 19:32 97.8 F 70 17 99/64 97 Weight Weight 120.202 kg I&O: 07/06/19 07/07/19 07/08/19 06:59 06:59 06:59 Intake Total 1760 Output Total 350 700 Balance -350 1060 Result Diagrams: 07/03/19 06:47 07/07/19 05:55 Phys Exam - Physical Examination Constitutional: NAD Respiratory: clear to auscultation bilateral Cardiovascular: RRR Gastrointestinal: soft, non-tender (slightly distended) Musculoskeletal: edema present Neurological: non-focal Psychiatric: normal affect Dx/Plan - Plan Plan: 59M with PMHx of cirrhosis with portal HTN, treated Hep C, GERD, HLD, hemorrhoids, esophageal varices, depression, and recent hospitalization for sepsis 2/2 strep bacteremia and C diff presents with bilateral flank pain. #Hyperbilirubinemia in the setting of decompensated cirrhosis -bili with slow uptrend -patient has known cirrhosis from Hep C (MELD score 30s), reportedly treated and alcohol abuse. Hep C viral load pending. Hep B serologies indicate immunization. AFP negative. -abdomen CT from [facility] notable for Hepatic cirrhosis with abnormal attenuation within hepatic segment eight which is linear. Follow-up MRI showed no new concerning finding. - Dr. Liang ([phone]), GI from [facility] - GI consulted, titrated up spironolactone and lasix, started lactulose #Hyperkalemia, resolved #Hx of C Diff -treated, PO vanc discontinued #COVID negative #Macrocytic anemia -patient received blood at [facility] after presenting with grossly bloody stool -Hgb stable, B12, folate WNL. # Blood cx +coag neg staph - likely contaminate. /2. #GERD -continue home meds #Hemorrhoids -continue home meds #Depression -continue home meds DVT ppx: SCDs GI PPX: protonix Code: Full PCP: Jelena Dispo: Plan for discharge today. Addendum - Attending - Attending Attestation Date/Time: 07/07/19 5028 I personally evaluated the patient and discussed the management with Dr. Mcginnis. I agree with the History, Examination, Assessment and Plan documented above with any addition or exceptions noted below. Patient overall stable. Labs with somewhat worsening. In decompensated cirrhosis. Attempted transfer to [facility] which was declined but has near term hepatology follow up with them and GI here is fine with that plan. No further changes to mgmt and stable for discharge.
[2019-07-07] MEDS: Citalopram 20 MG TAB PO SCH (09:16)
[2019-07-07] MEDS: Calcium Carbonate 600 MG + Vit D TAB PO SCH (09:16)
[2019-07-07] MEDS: Furosemide 20 MG TAB PO SCH ×2 (09:16→14:34)
[2019-07-07] MEDS: Hydrocortisone Acetate 25 MG Suppository PR SCH (09:17)
[2019-07-07] MEDS: Spironolactone 100 MG TAB PO SCH (09:17)
[2019-07-07] MEDS: Propranolol 10 MG TAB PO SCH (09:17)
[2019-07-07] MEDS: Phytonadione 10 MG/ML AMP PO SCH (10:41)
[2019-07-07 11:06] VITALS: TEMP 98.3
--- NOTE | 2019-07-07 14:23 | PRG ---
DATE OF SERVICE: 07/07/2019 REASON FOR CONSULTATION: Decompensated cirrhosis. SUBJECTIVE: Overnight, per nursing staff and per patient, he did not have any acute events or problems. With the institution of lactulose therapy, he has been having some increased abdominal bloating with administration and has had approximately 3 to 4 bowel movements over the last 24 hours. Otherwise, he states that he does continue to have some lower extremity edema, but currently denies any nausea, vomiting, fevers, chills, hematemesis, melena, hematochezia, dysphagia, or odynophagia. OBJECTIVE: VITAL SIGNS: Temperature 98.3, pulse 69, blood pressure 112/69, respiratory rate 16, saturating 96% on room air. GENERAL: The patient was lying in bed, in no acute distress. Alert and oriented x4. HEENT: Scleral icterus noted. CARDIOVASCULAR: Regular rate and rhythm. RESPIRATORY: Clear to auscultation bilaterally. ABDOMEN: Normoactive bowel sounds. Soft. Mild abdominal distention with positive shifting dullness. Nontender to palpation in all abdominal quadrants. EXTREMITIES: 2+ bilateral lower extremity edema extending to the knees. LABORATORY DATA: CBC with a white blood cell count of 10.5, hemoglobin 9.3, hematocrit 30.4, platelets 73. INR 4. Chemistry with a sodium of 131, potassium 4.8, chloride 103, CO2 of 24, BUN 19, creatinine 1.02, glucose 109. AST 138, ALT 51, alkaline phosphatase 195, total bilirubin 20.4. Calculated MELD sodium score of 35. IMAGING DATA: No current GI imaging is available for review. ASSESSMENT AND PLAN: The patient is a 59-year-old male presenting with Clostridium difficile colitis, Streptococcus bacteremia and resultant decompensated cirrhosis. Decompensated cirrhosis. The patient is presenting with a prior history of chronic hepatitis C infection, which was ultimately treated with SVR achieved. However, the patient was admitted to the hospital for Clostridium difficile colitis and was also noted to have a streptococcal bacteremia at the same time resulting in sepsis and significant hypotension. During the course of this hospitalization, he has been having decompensation of his cirrhosis as indicated by a slowly up trending INR and total bilirubin. Currently, the patient is clinically doing well but based on his labs and rising MELD score of 35, the patient is at risk for fulminant hepatic failure. Currently, he denies any overt episodes of encephalopathy which could potentially be a harbinger for impending liver failure, although he did have some fetor hepaticus on physical exam yesterday necessitating introduction of lactulose during this admission. At this time, the patient's 90 day mortality is greater than 70% and will likely benefit from evaluation at a transplant center. Recommendations: 1. Would recommend transferring the patient to [facility] given his incarcerated status for further evaluation of his decompensating liver disease and evaluation for possible transplant. 2. If the patient is unable to be effectively transferred soon, I would recommend follow up in the GI Clinic within the next 3 to 4 days for further evaluation and repeat labs at that time to establish trend. 3. If the patient develops acute encephalopathy, I would highly recommend transferring the patient to a tertiary care center with transplant capabilities. Ascites/lower extremity edema. The patient is presenting with increased abdominal distention and lower extremity edema consistent with hypoalbuminemia and concurrent cirrhosis. Currently, he is doing well on diuretic management with spironolactone 50 mg daily and furosemide 20 mg b.i.d. Recommendations: 1. We will continue to monitor patient for urinary output. 2. We would continue current diuretic management. We will continue to follow the patient while he is inpatient, but again would highly recommend transfer to tertiary care facility with transplant capabilities given his worsening liver function. We will sign off at this time. Please call with any questions. Job ID: [id number]
[2019-07-07 14:47] VITALS: BP 114/76
--- NOTE | 2019-07-08 13:26 | DIS ---
DATE OF ADMISSION: 07/02/2019 DATE OF DISCHARGE: 07/07/2019 RESIDENT: Alyssa Mcginnis DO ADMITTING ATTENDING: Brayden Berrios MD DISCHARGE ATTENDING: Adolfo Gillis MD CONSULT: Gastroenterology. PROCEDURES: 07/05/2019 abdomen MRI showed cirrhosis without suspicious liver lesion identified. Abnormal region seen in segment 8 of the liver on prior CT shows no focal liver mass or significantly abnormal enhancement compared to the rest of the liver, likely represented normal fibrous septations in an area of cirrhosis. Ascites. Small right renal cyst. PRIMARY DIAGNOSES: 1. Hyperbilirubinemia. 2. Decompensated cirrhosis. 3. Hyperkalemia. 4. History of Clostridium difficile. 5. Macrocytic anemia. SECONDARY DIAGNOSES: 1. Gastroesophageal reflux disease. 2. Hemorrhoids. 3. Depression. 4. History of hepatitis C, treated. 5. Hyperlipidemia. DISCHARGE MEDICATIONS: 1. Trazodone 100 mg p.o. at bedtime. 2. Calcium, vitamin D supplement one tablet p.o. daily. 3. Propranolol 20 mg p.o. b.i.d. 4. Omeprazole 20 mg p.o. daily. 5. Citalopram 20 mg p.o. daily. 6. Hydrocortisone acetate 25 mg per rectum b.i.d. 7. Lasix 40 mg p.o. b.i.d. 8. Lactulose 10 mg p.o. daily. 9. Spironolactone 100 mg p.o. b.i.d. DISCONTINUED MEDICATIONS: 1. Vancomycin 125 mg p.o. q.6 hours. 2. Diphenhydramine 25 mg p.o. b.i.d. 3. Furosemide 20 mg p.o. b.i.d. 4. Spironolactone 25 mg p.o. b.i.d. HISTORY OF PRESENT ILLNESS: A 59-year-old male with past medical history of cirrhosis and portal hypertension, treated hepatitis C, esophageal varices, presented for bilateral flank pain. He was noted to have hyperbilirubinemia. He was recently admitted at [facility] and was treated for sepsis secondary to Strep bacteremia in addition to C. diff. The Emergency Department called GI at [facility] and he recommended that the patient be admitted for workup of increased hyperbilirubinemia. Initial bilirubin 13.6, which trended to 20.4 at the time of discharge. Discharge AST 138, ALT 51, alkaline phosphatase 195. Albumin 2.2. Creatinine 1.02, sodium 131, potassium 4.8, INR 4.0. The INR on presentation was 3.2 and was discharged at 4.0. Hepatitis A IgM negative, hepatitis A antibody positive. Hepatitis C RNA was negative. Followup abdominal MRI for suspicious area was repeated and was essentially normal. GI saw the patient while in the hospital, trended enzymes as well as increasing diuretic regimen as the patient did have mild anasarca. His MELD score was 35. The patient was recommended to be transferred to [facility] for further evaluation due to his decompensated liver disease. Evaluation for transplant is recommended. Transfer process was initiated and not possible. It was decided that the patient instead would have close followup within 3 days with GI at [facility] to continue the workup and trending of his enzymes. If patient developed acute encephalopathy, he should be admitted to a tertiary care center with transplant team. He completed his 14-day course of oral vancomycin for C. diff and this was discontinued during hospitalization. DISPOSITION: Guarded. DISCHARGE INSTRUCTIONS: Location: [facility]. Diet: Low-sodium. Activity: As tolerated. Follow up with GI at [facility] within 3 days. Job ID: [id number] [id number]
== END 2019-07-07 15:04 | DRG 433 ==
LOC: ERS 10:17 → INTOOBSV 19:46 → OBSVTOIN 19:46 → 2SW 19:46 → EEVIPCON 19:46 → T4-B 07-03 22:42
PROVIDERS: ADMIT Family Medicine; ATTEND Family Medicine
DX: K74.60 Unspecified cirrhosis of liver (principal); K76.6 Portal hypertension; I85.00 Esophageal varices without bleeding; R18.8 Other ascites; Z20.828 Contact with and (suspected) exposure to other viral communicable diseases; K21.9 Gastro-esophageal reflux disease without esophagitis; E78.5 Hyperlipidemia, unspecified; F32.9 Major depressive disorder, single episode, unspecified; D53.9 Nutritional anemia, unspecified; K64.9 Unspecified hemorrhoids; I10 Essential (primary) hypertension; M19.90 Unspecified osteoarthritis, unspecified site; E87.5 Hyperkalemia; Z90.49 Acquired absence of other specified parts of digestive tract; Z86.19 Personal history of other infectious and parasitic diseases
CPT/HCPCS: 36415; 74183; 80053; 81003; 81015; 82105; 82140; 82248; 82607; 82746; 83605; 83690; 85025; 85610; 85730; 86301; 86704; 86705; 86706; 86709; 87040; 87086; 87149; 87521; 87635; 90471; 90732; 99285; G0009; J3430; U0003